=== PATIENT | male | born 1965 | race Caucasian/White ===

== ENCOUNTER 2019-02-12 10:48 | Emergency (ER) | payer OTHER ==
[2019-02-12 11:06] VITALS: BP 163/96; PULSE 77; RESP 18; TEMP 98.1
[2019-02-12] MEDS ORDERED: HYDROcodone/APAP 5-325MG 1 EACH TAB PO STA (13:19)
[2019-02-12] MEDS ORDERED: ONDANSETRON 4 MG/2 ML VIAL IVP STA (13:19)
[2019-02-12] MEDS ORDERED: SODIUM CHLORIDE 0.9% 1,000 ML IV ONE (13:19)
[2019-02-12 13:56] LABS: Appearance,Urine Clear (Clear); Bilirubin,Urine Negative (Negative); Blood,Urine Large (Negative); Color,Urine Light Red; Glucose,Urine (UA) Negative (Negative); Ketones,Urine Negative (Negative); Leukocyte Esterase,Urine Trace (Negative); Nitrite,Urine Negative (Negative); PH, Urine 7.5 (5.0-8.0); Protein,Urine Trace (Negative); RBC,Urine >182 /hpf (0-5); Specific Gravity,Urine 1.014 (1.001-1.035); Urobilinogen,Urine <2.0 mg/dL (<2.0)
[2019-02-12 14:11] LABS: Anisocytosis Slight; Basophils # (A) 0.1 k/uL (0-0.2); Basophils % (A) 0 %; Eosinophils # (A) 0.3 k/uL (0-0.7); Eosinophils % (A) 2 %; HCT 52.9 % (39.0-53.0); HGB 16.2 gm/dL (13.0-17.5); Lymphocytes # (A) 2.4 k/uL (1.0-4.8); Lymphocytes % (A) 19 %; MCH 26.7 pg (25.0-35.0); MCHC 30.6 g/dL (31.0-37.0); MCV 87.2 fL (80.0-100.0); Mean Platelet Volume 7.9; Monocytes # (A) 0.8 k/uL (0-1.0); Monocytes % (A) 6 %; Neutrophils # (A) 9.1 k/uL (1.3-7.7); Neutrophils % (A) 71 %; Platelet Count 255 k/uL (150-450); RBC 6.07 m/uL (4.30-5.90); RDW 16.8 % (11.5-15.5); WBC 12.9 k/uL (3.8-10.6)
[2019-02-12 14:40] LABS: Calcium 9.3 mg/dL (8.4-10.2); Potassium 4.7 mmol/L (3.5-5.1)
[2019-02-12] MEDS ORDERED: MORPHINE SULFATE 4 MG/ML SYRINGE IVP STA ×2 (14:42→15:48)
--- NOTE | 2019-02-12 16:00 | US ---
EXAMINATION TYPE: US kidneys/renal and bladder DATE OF EXAM: 02/12/2019 COMPARISON: NONE CLINICAL HISTORY: Pain. left flank pain, history of renal stones since the age of 16. EXAM MEASUREMENTS: Right Kidney: 12.9 x 5.4 x 5.5 cm Left Kidney: 9.0 x 5.1 x 4.1 cm No obvious stones seen. Right Kidney: No hydronephrosis or masses seen Left Kidney: No hydronephrosis or masses seen Bladder: there is floating debris noted within the bladder as well as sediment at base of bladder, on ly right jet seen. Inferior impression on the base of the bladder due to probable enlarged prostate Bilateral Jets seen: only right jet seen There is no evidence for hydronephrosis at this point in time. No nephrolithiasis is seen. No yanet s are identified. The urinary bladder is anechoic. Bilateral ureteral jets are seen. The kidneys show normal cortical medullary differentiation. IMPRESSION: No evident hydronephrosis. Single ureteral jet identified on bladder ultrasound.
--- NOTE | 2019-02-12 16:37 | ED ---
Abdominal Pain HPI - General Chief Complaint: Abdominal Pain Stated Complaint: kidney stone Time Seen by Provider: 02/12/19 13:05 Source: patient Mode of arrival: ambulatory Limitations: no limitations - History of Present Illness Initial Comments: 53-year-old male presenting with left flank pain and difficulty urinating. Patient states is a history of cystine stones. States he has had lithotripsy and stents in the past. Patient states currently he has issues with this every one year. He states this weekend he straight from his diet and then he d eveloped this left-sided flank pain. He denies any fevers, chills or chest pain or shortness of breath. He admits to nausea and vomiting. 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 - Related Data Home Medications Medication Instructions Recorded Confirmed Testosterone Cypionate 200 mg IM FR 02/12/19 02/12/19 [Depo-Testosterone] Allergies Allergy/AdvReac Type Severity Reaction Status Date / Time ibuprofen [From Motrin] Allergy Anaphylaxis Verified 02/12/19 13:23 Iodinated Contrast- Oral and Allergy Swelling Verified 02/12/19 13:23 IV Dye ketorolac [From Toradol] Allergy Anaphylaxis Verified 02/12/19 13:23 NSAIDS (Non-Steroidal Allergy Unknown Verified 02/12/19 13:23 Anti-Inflamma Penicillins Allergy Rash/Hives Verified 02/12/19 13:23 shellfish derived [Shrimp] Allergy Itching Verified 02/12/19 13:23 GROUND BEANS Allergy Rash/Hives Uncoded 02/12/19 13:23 Review of Systems ROS Statement: Those systems with pertinent positive or pertinent negative responses have been documented in the HPI. Review of Systems Constitutional: Denies fever, chills Eyes: Denies change in vision, Denies pain Ears, nose, mouth, throat: Denies headaches, Denies sore throat Cardiovascular: Denies chest pain. Denies palpitations Respiratory: Denies shortness of breath, Denies cough Gastrointestinal: Positive abdominal pain. Positive nausea, vomiting, negative diarrhea. Genitourinary: Positive hematuria, Denies infections Musculoskeletal: Denies pain, Denies swelling Integumentary: Denies rash Neurological: Denies headache, focal weakness, focal numbness Psychiatric: Denies anxiety, Denies depression Hematologic/Lymphatic: Denies easy bleeding or bruising ROS Other: All systems not noted in ROS Statement are negative. Past Medical History Additional Past Medical History / Comment(s): kidney stones History of Any Multi-Drug Resistant Organisms: None Reported Past Surgical History: Orthopedic Surgery Additional Past Surgical History / Comment(s): 7 spinal fusions, multiple lithotripsy Past Psychological History: No Psychological Hx Reported Smoking Status: Never smoker Past Alcohol Use History: Rare Past Drug Use History: None Reported General Exam - General Exam Comments Initial Comments: General: Awake, alert, No acute Distress HENT: Normocephalic. Atraumatic Eyes: PERRL. EOMI. No scleral icterus. No injected conjunctiva Neck: Full ROM Chest/Lungs: Clear to auscultation bilaterally. No wheezing, rhonchi, or rales Cardiac: Regular rate, rhythm. No murmurs or rubs Abdomen/GI: Soft, nontender, nondistended. No rebound, guarding, or rigidity. Left-sided CVA tenderness Musculoskeletal: Full ROM Skin: Warm, dry, intact Neurologic: A/Ox3, no weakness, no sensory deficit, no abnormal gait, no coordination deficit Limitations: no limitations Course Vital Signs 02/12/19 11:02 Temperature 98.1 F Pulse Rate 77 Respiratory 18 Rate Blood Pressure 163/96 O2 Sat by Pulse 95 Oximetry Medical Decision Making - Medical Decision Making 53-year-old male presenting with left-sided flank pain. Initial exam the patient is awake, alert, no acute distress. VSS. Patient has no evidence of infection in his urine. His US shows no hydronephrosis, but his left ureteral jet is not seen, which is consistent with the side his pain is on. While in the department the patient passed the stone. His pain improved. At this time no further emergent workup indicated. The patient is stable for follow-up with his urologist back in [place], where he is from. No further emergent workup indicated. The patient was given return to ED instructions. They were instructed to follow up with their primary care provider. Stable for discharge at this time. - Lab Data Result diagrams: 02/12/19 13:50 02/12/19 13:50 Lab Results 02/12/19 02/12/19 02/12/19 Range/Units 13:45 13:50 13:50 WBC 12.9 H (3.8-10.6) k/uL RBC 6.07 H (4.30-5.90) m/uL Hgb 16.2 (13.0-17.5) gm/dL Hct 52.9 (39.0-53.0) % MCV 87.2 (80.0-100.0) fL MCH 26.7 (25.0-35.0) pg MCHC 30.6 L (31.0-37.0) g/dL RDW 16.8 H (11.5-15.5) % Plt Count 255 (150-450) k/uL Neutrophils % 71 % Lymphocytes % 19 % Monocytes % 6 % Eosinophils % 2 % Basophils % 0 % Neutrophils # 9.1 H (1.3-7.7) k/uL Lymphocytes # 2.4 (1.0-4.8) k/uL Monocytes # 0.8 (0-1.0) k/uL Eosinophils # 0.3 (0-0.7) k/uL Basophils # 0.1 (0-0.2) k/uL Anisocytosis Slight Sodium 137 (137-145) mmol/L Potassium 4.7 (3.5-5.1) mmol/L Chloride 106 (98-107) mmol/L Carbon Dioxide 23 (22-30) mmol/L Anion Gap 8 mmol/L BUN 19 (9-20) mg/dL Creatinine 1.15 (0.66-1.25) mg/dL Est GFR (CKD-EPI)AfAm 85 (>60 ml/min/1.73 sqM) Est GFR (CKD-EPI)NonAf 74 (>60 ml/min/1.73 sqM) Glucose 105 H (74-99) mg/dL Calcium 9.3 (8.4-10.2) mg/dL Urine Color Light Red Urine Appearance Clear (Clear) Urine pH 7.5 (5.0-8.0) Ur Specific [place] 1.014 (1.001-1.035) Urine Protein Trace H (Negative) Urine Glucose (UA) Negative (Negative) Urine Ketones Negative (Negative) Urine Blood Large H (Negative) Urine Nitrite Negative (Negative) Urine Bilirubin Negative (Negative) Urine Urobilinogen <2.0 (<2.0) mg/dL Ur Leukocyte Esterase Trace H (Negative) Urine RBC >182 H (0-5) /hpf Disposition Clinical Impression: Kidney stone Disposition: HOME SELF-CARE Condition: Good Instructions (If sedation given, give patient instructions): Kidney Stones (ED) Additional Instructions: Follow-up with your urologist when he returns home. Is patient prescribed a controlled substance at d/c from ED?: No Referrals: None,Stated [Primary Care Provider] - 1-2 days
== END 2019-02-12 16:52 | disposition home or self-care (01) ==
LOC: EC 10:48
DX: N20.0 Calculus of kidney (principal); Z88.0 Allergy status to penicillin; Z88.6 Allergy status to analgesic agent; Z91.013 Allergy to seafood; Z91.018 Allergy to other foods; Z91.041 Radiographic dye allergy status; Z79.890 Hormone replacement therapy; Z87.442 Personal history of urinary calculi; Z98.890 Other specified postprocedural states
CPT/HCPCS: 36415; 80048; 85025; 81001; 76770; 99284; 96374; 96375; 96376; 96361; J2270; J2405